=== PATIENT | male | born 1975 | race Caucasian/White ===

== ENCOUNTER 2018-07-19 23:31 | Emergency (ER) | payer BC ==
[2018-07-19] MEDS ORDERED: Sodium Chloride 0.9% 10 ML Syringe FLUSH PRN (23:53)
[2018-07-19] MEDS ORDERED: Morphine 2 MG/ML Syringe IVPUSH ONE (23:53)
[2018-07-19] MEDS ORDERED: Ketorolac 30 MG/ML SDV IVPUSH ONE (23:53)
[2018-07-19] MEDS ORDERED: Sodium Chloride 0.9% 2.5 ML Syringe FLUSH PRN (23:53)
[2018-07-19] MEDS ORDERED: Sodium Chloride 0.9% 1,000 ML IV ONE (23:53)
[2018-07-19] MEDS ORDERED: Ondansetron 4 MG/2 ML SDV IVPUSH ONE (23:53)
--- NOTE | 2018-07-19 23:56 | EDM.PDOC ---
ED HPI GENERAL MEDICAL PROBLEM - General Chief Complaint: Abdominal Pain Stated Complaint: ABD PAIN Time Seen by Provider: 07/19/18 23:47 - History of Present Illness INITIAL COMMENTS - FREE TEXT/NARRATIVE: HISTORY AND PHYSICAL: History of present illness: The patient is a 43-year-old male with a history of hypertension and insulin requiring diabetes who says that his sugar has been very stable and who presents with complaints of quick onset of right lower quadrant pain that started while he was sitting in a chair this evening. The patient says he had a normal day without any issues or systemic problems and has not had any fevers and says that he ate normally throughout the day but it is less than usual for dinner because he wasn't as hungry. He's had no recent trauma or illnesses and says that he was sitting in a chair when the pain came on very quickly in the right lower quadrant and radiated up to the right side. He's had no hematuria or dysuria and no flank pain and no testicular pain. He did not take any medications for this pain prior to coming here. He did not have a fever throughout the day and says that he only felt nauseated after the pain was constant for 30 minutes. He says it has since improved and only rates it as an 8 /10 currently. He has no midline back pain Review of systems: As per history of present illness and below otherwise all systems reviewed and negative. Past medical history: As per history of present illness and as reviewed below otherwise noncontributory. Surgical history: As per history of present illness and as reviewed below otherwise noncontributory. Social history: No reported history of drug or alcohol abuse. Family history: As per history of present illness and as reviewed below otherwise noncontributory. Physical exam: General: Well-developed well-nourished overweight man who is nontoxic and seems somewhat sweaty on my evaluation. Vital signs were noted by me HEENT: Atraumatic, normocephalic, negative for conjunctival pallor or scleral icterus, mucous membranes moist, throat clear, neck supple, nontender, trachea midline. Lungs: Clear to auscultation, breath sounds equal bilaterally, chest nontender. Heart: S1S2, regular rhythm slightly tachycardic rate of my evaluation but no overt murmurs. Abdomen: Soft, nondistended, bowel sounds are very hypoactive but there is no tympany on percussion. There is tenderness in the right lower quadrant without rebound or guarding but the patient has difficult time relaxing throughout the exam. Negative for masses or hepatosplenomegaly. Negative for costovertebral tenderness. Pelvis: Stable nontender. Genitourinary: Deferred. Rectal: Deferred. Extremities: Atraumatic, negative for cords or calf pain. Neurovascular unremarkable. Neuro: Awake, alert, oriented. Cranial nerves II through XII unremarkable. Cerebellum unremarkable. Motor and sensory unremarkable throughout. Exam nonfocal. Diagnostics: CBC CMP UA with reflex CT scan of the abdomen and pelvis Therapeutics: IV fluids Zofran Toradol morphine Heart rate has normalized to 94 after pain management and pain is also improved 0103: Dr. Steven the radiologist has contacted me and says that the patient does have 2 small stones , one within each of the kidneys, but there is no ureterolithiasis or obstruction and it is difficult to see the appendix but it is enlarged 7 mm. We discussed repeating the CT with contrast just of the pelvis which she feels may be able to help. I will inform the patient of this; he is agreeable to further image. 0218: As discussed with Dr. Curtis and I reevaluated the patient. He says that his pain is significantly improved and is no longer nauseated. On reexamination he still has some tenderness in the right lower quadrant without rebound or guarding and I have discussed with him the repeat CT scan findings of the slightly enlarged appendix without periappendiceal changes. Dr. Curtis feels that with the CT normal white cell count and no fever she would not pursue acute appendicitis at this point and she can follow him up in the clinic. She does not advise any antibiotics. I will advise the patient of this conversation and his presentation is more of may be passing a small stone or debris causing the trace occult blood and symptomatology. I will advise him on reasons to return to the ED and give him referral information to follow-up with Dr. Curtis He is completely comfortable with this care plan Impression: Right lower quadrant pain Definitive disposition and diagnosis as appropriate pending reevaluation and review of above. RLQ abdomen Pain Score (Numeric/FACES): 8 - Related Data Allergies Allergy/AdvReac Type Severity Reaction Status Date / Time No Known Allergies Allergy Verified 07/19/18 23:45 Home Meds: Home Meds Insulin Aspart [NovoLOG] 1,000 unit .XX ASDIRECTED 01/09/18 [History] Lisinopril 1 tab PO DAILY 07/19/18 [History] Rosuvastatin Calcium 1 tab PO DAILY 07/19/18 [History] Past Medical History HEENT History: Reports: Impaired Vision Other HEENT History: wears glasses Cardiovascular History: Reports: High Cholesterol, Hypertension Endocrine/Metabolic History: Reports: Diabetes, Type I - Infectious Disease History Infectious Disease History: Reports: Chicken Pox Social & Family History - Family History Family Medical History: Noncontributory - Tobacco Use Smoking Status *Q: Never Smoker - Recreational Drug Use Recreational Drug Use: No ED ROS GENERAL - Review of Systems Review Of Systems: ROS reveals no pertinent complaints other than HPI. ED EXAM, GENERAL - Physical Exam Exam: See Below (See dictation) Course - Vital Signs Last Recorded V/S: Last Vital Signs Temp 35.7 C 07/19/18 23:35 Pulse 94 07/20/18 00:59 Resp 18 07/20/18 00:59 BP 143/81 H 07/20/18 00:59 Pulse Ox 97 07/20/18 00:59 - Orders/Labs/Meds Orders: Active Orders 24 hr Category Date Time Status Sodium Chloride 0.9% [Saline Flush] Med 07/19/18 23:53 Active 10 ml FLUSH ASDIRECTED PRN Sodium Chloride 0.9% [Saline Flush] Med 07/19/18 23:53 Active 2.5 ml FLUSH ASDIRECTED PRN Saline Lock Insert [OM.PC] Stat Oth 07/19/18 23:52 Ordered Medication Orders Sodium Chloride (Saline Flush) 10 ml FLUSH ASDIRECTED PRN PRN Reason: Keep Vein Open Sodium Chloride (Saline Flush) 2.5 ml FLUSH ASDIRECTED PRN PRN Reason: Keep Vein Open Labs: Laboratory Tests 07/19/18 07/19/18 07/19/18 Range/Units 23:45 23:50 23:50 WBC 7.85 (4.0-11.0) K/uL RBC 5.35 (4.50-5.90) M/uL Hgb 16.0 (13.0-17.0) g/dL Hct 47.1 (38.0-50.0) % MCV 88.0 (80.0-98.0) fL MCH 29.9 (27.0-32.0) pg MCHC 34.0 (31.0-37.0) g/dL RDW Std Deviation 41.9 (28.0-62.0) fl RDW Coeff of Boni 13 (11.0-15.0) % Plt Count 267 (150-400) K/uL MPV 10.40 (7.40-12.00) fL Neut % (Auto) 56.9 (48.0-80.0) % Lymph % (Auto) 34.0 (16.0-40.0) % [place] % (Auto) 7.0 (0.0-15.0) % Eos % (Auto) 1.7 (0.0-7.0) % Baso % (Auto) 0.4 (0.0-1.5) % Neut # (Auto) 4.5 (1.4-5.7) K/uL Lymph # (Auto) 2.7 H (0.6-2.4) K/uL [place] # (Auto) 0.6 (0.0-0.8) K/uL Eos # (Auto) 0.1 (0.0-0.7) K/uL Baso # (Auto) 0.0 (0.0-0.1) K/uL Nucleated RBC % 0.0 /100WBC Nucleated RBCs # 0 K/uL Sodium 139 (136-148) mmol/L Potassium 3.6 (3.5-5.1) mmol/L Chloride 101 (98-107) mmol/L Carbon Dioxide 28.5 (21.0-32.0) mmol/L BUN 25 H (7.0-18.0) mg/dL Creatinine 1.2 (0.8-1.3) mg/dL Est Cr Clr Drug Dosing 93.24 mL/min Estimated GFR (MDRD) > 60.0 ml/min Glucose 113 H (74-106) mg/dL POC Glucose (60-110) mg/dL Calcium 9.3 (8.5-10.1) mg/dL Total Bilirubin 0.6 (0.2-1.0) mg/dL AST 111 H (15-37) IU/L ALT 166 H (14-63) IU/L Alkaline Phosphatase 178 H (46-116) U/L Total Protein 7.5 (6.4-8.2) g/dL Albumin 4.0 (3.4-5.0) g/dL Globulin 3.5 (2.6-4.0) g/dL Albumin/Globulin Ratio 1.1 (0.9-1.6) Urine Color YELLOW Urine Appearance CLEAR Urine pH 5.0 (5.0-8.0) Ur Specific [place] >= 1.030 (1.001-1.035) Urine Protein 30 H (NEGATIVE) mg/dL Urine Glucose (UA) NEGATIVE (NEGATIVE) mg/dL Urine Ketones NEGATIVE (NEGATIVE) mg/dL Urine Occult Blood TRACE-INTACT H (NEGATIVE) Urine Nitrite NEGATIVE (NEGATIVE) Urine Bilirubin NEGATIVE (NEGATIVE) Urine Urobilinogen 0.2 (<2.0) EU/dL Ur Leukocyte Esterase NEGATIVE (NEGATIVE) Urine RBC 0-2 (0-2/HPF) Urine WBC 0-1 (0-5/HPF) Ur Epithelial Cells RARE (NONE-FEW) Urine Bacteria RARE (NEGATIVE) 07/19/18 Range/Units 23:51 WBC (4.0-11.0) K/uL RBC (4.50-5.90) M/uL Hgb (13.0-17.0) g/dL Hct (38.0-50.0) % MCV (80.0-98.0) fL MCH (27.0-32.0) pg MCHC (31.0-37.0) g/dL RDW Std Deviation (28.0-62.0) fl RDW Coeff of Boni (11.0-15.0) % Plt Count (150-400) K/uL MPV (7.40-12.00) fL Neut % (Auto) (48.0-80.0) % Lymph % (Auto) (16.0-40.0) % [place] % (Auto) (0.0-15.0) % Eos % (Auto) (0.0-7.0) % Baso % (Auto) (0.0-1.5) % Neut # (Auto) (1.4-5.7) K/uL Lymph # (Auto) (0.6-2.4) K/uL [place] # (Auto) (0.0-0.8) K/uL Eos # (Auto) (0.0-0.7) K/uL Baso # (Auto) (0.0-0.1) K/uL Nucleated RBC % /100WBC Nucleated RBCs # K/uL Sodium (136-148) mmol/L Potassium (3.5-5.1) mmol/L Chloride (98-107) mmol/L Carbon Dioxide (21.0-32.0) mmol/L BUN (7.0-18.0) mg/dL Creatinine (0.8-1.3) mg/dL Est Cr Clr Drug Dosing mL/min Estimated GFR (MDRD) ml/min Glucose (74-106) mg/dL POC Glucose 92 (60-110) mg/dL Calcium (8.5-10.1) mg/dL Total Bilirubin (0.2-1.0) mg/dL AST (15-37) IU/L ALT (14-63) IU/L Alkaline Phosphatase (46-116) U/L Total Protein (6.4-8.2) g/dL Albumin (3.4-5.0) g/dL Globulin (2.6-4.0) g/dL Albumin/Globulin Ratio (0.9-1.6) Urine Color Urine Appearance Urine pH (5.0-8.0) Ur Specific [place] (1.001-1.035) Urine Protein (NEGATIVE) mg/dL Urine Glucose (UA) (NEGATIVE) mg/dL Urine Ketones (NEGATIVE) mg/dL Urine Occult Blood (NEGATIVE) Urine Nitrite (NEGATIVE) Urine Bilirubin (NEGATIVE) Urine Urobilinogen (<2.0) EU/dL Ur Leukocyte Esterase (NEGATIVE) Urine RBC (0-2/HPF) Urine WBC (0-5/HPF) Ur Epithelial Cells (NONE-FEW) Urine Bacteria (NEGATIVE) Meds: Medications Generic Name Dose Route Start Last Admin Trade Name Freq PRN Reason Stop Dose Admin Sodium Chloride 10 ml 07/19/18 23:53 Saline Flush FLUSH ASDIRECTED PRN Keep Vein Open Sodium Chloride 2.5 ml 07/19/18 23:53 Saline Flush FLUSH ASDIRECTED PRN Keep Vein Open Discontinued Medications Generic Name Dose Route Start Last Admin Trade Name Freq PRN Reason Stop Dose Admin Sodium Chloride 1,000 mls @ 999 mls/hr 07/19/18 23:53 07/20/18 00:02 Normal Saline IV 07/20/18 00:53 999 mls/hr STAT ONE Administration Iopamidol 100 ml 07/20/18 01:40 07/20/18 01:40 Isovue Multipack-370 (76%) IVPUSH 07/20/18 01:41 100 ml ONETIME STA Administration Ketorolac Tromethamine 30 mg 07/19/18 23:53 07/20/18 00:03 Toradol IVPUSH 07/19/18 23:54 30 mg ONETIME ONE Administration Morphine Sulfate 4 mg 07/19/18 23:53 07/20/18 00:03 Morphine IVPUSH 07/19/18 23:54 4 mg ONETIME ONE Administration Ondansetron HCl 4 mg 07/19/18 23:53 07/20/18 00:03 Zofran IVPUSH 07/19/18 23:54 4 mg ONETIME ONE Administration Departure - Departure Time of Disposition: 02:24 Disposition: Home, Self-Care 01 Condition: Good Clinical Impression: Abdominal pain Qualifiers: Abdominal location: right lower quadrant Qualified Code(s): R10.31 - Right lower quadrant pain - Discharge Information Referrals: PCP,None [Primary Care Provider] - Forms: ED Department Discharge Additional Instructions: The following information is given to patients seen in the emergency department who are being discharged to home. This information is to outline your options for follow-up care. We provide all patients seen in our emergency department with a follow-up referral. The need for follow-up, as well as the timing and circumstances, are variable depending upon the specifics of your emergency department visit. If you don't have a primary care physician on staff, we will provide you with a referral. We always advise you to contact your personal physician following an emergency department visit to inform them of the circumstance of the visit and for follow-up with them and/or the need for any referrals to a consulting specialist. The emergency department will also refer you to a specialist when appropriate. This referral assures that you have the opportunity for followup care with a specialist. All of these measure are taken in an effort to provide you with optimal care, which includes your followup. Under all circumstances we always encourage you to contact your private physician who remains a resource for coordinating your care. When calling for followup care, please make the office aware that this follow-up is from your recent emergency room visit. If for any reason you are refused follow-up, please contact the [facility] emergency department at and ask to speak to the emergency department charge nurse. [facility] [address] [place] [id number] Push hydration and eat a bland diet for the next 24 hours. Please use over-the- counter medications as you choose for discomfort and call the clinic first thing in the morning and schedule a follow-up appointment with Dr. Curtis in her clinic stating to the clerical receptionist desk that you were seen here in the ED and she was called about you. Please return to ER as needed and as we discussed. Routine you to monitor your blood sugar as we discussed. - My Orders Last 24 Hours: My Active Orders 07/19/18 23:52 Saline Lock Insert [OM.PC] Stat 07/19/18 23:53 Sodium Chloride 0.9% [Saline Flush] 10 ml FLUSH ASDIRECTED PRN Sodium Chloride 0.9% [Saline Flush] 2.5 ml FLUSH ASDIRECTED PRN - Assessment/Plan Last 24 Hours: My Active Orders 07/19/18 23:52 Saline Lock Insert [OM.PC] Stat 07/19/18 23:53 Sodium Chloride 0.9% [Saline Flush] 10 ml FLUSH ASDIRECTED PRN Sodium Chloride 0.9% [Saline Flush] 2.5 ml FLUSH ASDIRECTED PRN
[2018-07-20 00:13] LABS: CHLORIDE,CL 101 mmol/L (98-107); SODIUM,NA 139 mmol/L (136-148)
--- NOTE | 2018-07-20 01:06 | CT ---
INDICATION: Right lower quadrant pain TECHNIQUE: CT abdomen and pelvis without contrast. COMPARISON: None FINDINGS: Lower chest: Unremarkable. Liver: Unremarkable. Spleen: Unremarkable. Pancreas: Unremarkable. Gallbladder and bile ducts: Unremarkable. Adrenal glands: Unremarkable. Kidneys: 5 mm nonobstructive stone in the right kidney. 2 mm nonobstructive left renal stone. GI tract: The proximal appendix is only partially seen on image 50 through 55 series 204. The visualized appendix measures 7 mm in diameter. There is no periappendiceal fat stranding. Vascular structures: Unremarkable. Lymph nodes: Unremarkable. Miscellaneous: Unremarkable. No free air or significant free fluid. Pelvic Organs: Unremarkable. Bones: Unremarkable for age. IMPRESSION: Only the proximal appendix is visualized. It measures 7 mm in diameter. This could represent early acute appendicitis. No periappendiceal fat stranding identified. Nonobstructive bilateral nephrolithiasis. These findings were discussed with Dr. Duenas at 1 a.m. on July 20, 2018. Please note that all CT scans at this facility use dose modulation, iterative reconstruction, and/or weight-based dosing when appropriate to reduce radiation dose to as low as reasonably achievable. Dictated by Ivonne Steven MD @ Jul 20 2018 12:48AM Signed by Dr. Ivonne Steven @ Jul 20 2018 1:03AM
[2018-07-20] MEDS ORDERED: Iopamidol 755 MG/ML 500 ML Multipack Bottle IVPUSH STA (01:40)
--- NOTE | 2018-07-20 02:09 | CT ---
INDICATION: Right lower quadrant pain. Appendix not clearly seen on noncontrast CT done earlier today. TECHNIQUE: CT pelvis acquired with 100 cc Isovue 370 IV contrast. COMPARISON: CT abdomen pelvis from earlier today FINDINGS: The appendix is visualized on image 45 series 303 and measures 7 mm in diameter. There is no periappendiceal fat stranding. Remainder of the exam is stable compared to the prior study. No free fluid. IMPRESSION: The appendix is more clearly seen on this exam. The appendix measures 7 mm in diameter, concerning for early acute appendicitis. There is no periappendiceal fat stranding or free fluid. These findings were discussed with Dr. Duenas at 2:08 a.m. on July 20, 2018. Please note that all CT scans at this facility use dose modulation, iterative reconstruction, and/or weight-based dosing when appropriate to reduce radiation dose to as low as reasonably achievable. Dictated by Ivonne Steven MD @ Jul 20 2018 1:59AM Signed by Dr. Ivonne Steven @ Jul 20 2018 2:07AM
== END 2018-07-20 02:34 | disposition home or self-care (01) ==
LOC: MW.ED 23:31
DX: R10.31 Right lower quadrant pain (principal); I10 Essential (primary) hypertension; E78.00 Pure hypercholesterolemia, unspecified; E10.9 Type 1 diabetes mellitus without complications; Z79.899 Other long term (current) drug therapy
CPT/HCPCS: 36415; 72193; 74176; 80053; 81001; 82962; 85025; 96361; 96374; 96375; 99284; J1885; J2270; J2405; J7040; Q9967; 99283

== ENCOUNTER 2019-08-05 07:19 | Emergency (ER) | payer BC ==
[2019-08-05] MEDS ORDERED: Ondansetron 4 MG/2 ML SDV IVPUSH ONE (07:49)
[2019-08-05] MEDS ORDERED: Ketorolac 30 MG/ML SDV IVPUSH ONE (07:49)
[2019-08-05] MEDS ORDERED: Sodium Chloride 0.9% 10 ML Syringe FLUSH PRN (07:49)
[2019-08-05] MEDS ORDERED: Sodium Chloride 0.9% 2.5 ML Syringe FLUSH PRN ×2 (07:49)
[2019-08-05] MEDS ORDERED: Morphine 4 MG/ML Syringe IVPUSH ONE (07:49)
[2019-08-05] MEDS ORDERED: Sodium Chloride 0.9% 1,000 ML IV ONE (07:49)
[2019-08-05] MEDS ORDERED: Morphine 2 MG/ML SYRINGE IVPUSH PRN (07:50)
--- NOTE | 2019-08-05 08:01 | EDM.PDOC ---
ED HPI GENERAL MEDICAL PROBLEM - General Chief Complaint: General Stated Complaint: KIDNEY STONES OR APPENDIX Time Seen by Provider: 08/05/19 07:33 - History of Present Illness INITIAL COMMENTS - FREE TEXT/NARRATIVE: History of present illness: Patient presents with right flank pain that began last night similar pain to his prior kidney stones pain is in the right back radiating into the right groin sharp colicky nature he denies any blood in his urine he is not had any fever or chills he did have some nausea and vomiting earlier prior kidney stones passed spontaneously he has a history of diabetes and renal colic. Review of systems: As per history of present illness and below otherwise all systems reviewed and negative. Past medical history: As per history of present illness and as reviewed below otherwise noncont ributory. Surgical history: As per history of present illness and as reviewed below otherwise noncontributory. Social history: No reported history of drug or alcohol abuse. Family history: As per history of present illness and as reviewed below otherwise noncontributory. Physical exam: HEENT: Atraumatic, normocephalic, pupils reactive, negative for conjunctival pallor or scleral icterus, mucous membranes moist, throat clear, neck supple, nontender, trachea midline. Lungs: Clear to auscultation, breath sounds equal bilaterally, chest nontender. Heart: S1S2, regular, negative for clicks, rubs, or JVD. Abdomen: Soft, nondistended, nontender. Negative for masses or hepatosplenomegaly. Negative for costovertebral tenderness. Pelvis: Stable nontender. Genitourinary: Deferred. Rectal: Deferred. Extremities: Atraumatic, negative for cords or calf pain. Neurovascular unremarkable. Neuro: Awake, alert, oriented. Cranial nerves II through XII unremarkable. Cerebellum unremarkable. Motor and sensory unremarkable throughout. Exam nonfocal. Diagnostics: [] Therapeutics: [] Impression: [] Plan: Will be medicated with Toradol morphine and Zofran fluid bolus will be given labs will be sent he will be reassessed. [] Definitive disposition and diagnosis as appropriate pending reevaluation and review of above. Right Back Pain Score (Numeric/FACES): 8 - Related Data Allergies Allergy/AdvReac Type Severity Reaction Status Date / Time No Known Allergies Allergy Verified 08/05/19 07:39 Home Meds: Home Meds Insulin Aspart [NovoLOG] 1,000 unit .XX ASDIRECTED 01/09/18 [History] Lisinopril 1 tab PO DAILY 07/19/18 [History] Rosuvastatin Calcium 1 tab PO DAILY 07/19/18 [History] Naproxen Sodium [Anaprox DS] 550 mg PO BID #20 tab 08/05/19 [Rx] Ondansetron [Zofran ODT] 4 mg PO Q6H PRN 5 Days #12 tab.dis 08/05/19 [Rx] Tamsulosin [Flomax] 0.4 mg PO DAILY 10 Days #10 cap.er 08/05/19 [Rx] oxyCODONE HCl/Acetaminophen [Percocet 5-325 mg Tablet] 1 each PO Q8HR #12 tablet 08/05/19 [Rx] Past Medical History HEENT History: Reports: Impaired Vision Other HEENT History: wears glasses Cardiovascular History: Reports: High Cholesterol, Hypertension Endocrine/Metabolic History: Reports: Diabetes, Type I - Infectious Disease History Infectious Disease History: Reports: None Social & Family History - Family History Family Medical History: Noncontributory - Tobacco Use Smoking Status *Q: Never Smoker - Caffeine Use Caffeine Use: Reports: None - Recreational Drug Use Recreational Drug Use: No ED ROS GENERAL - Review of Systems Review Of Systems: See Below ED EXAM, GENERAL - Physical Exam Exam: See Below Course - Vital Signs Text/Narrative:: Patient is feeling better after medications still has some residual pain in his right flank lab studies are fairly unremarkable he is hyperglycemic and wants to go home and take his insulin. No evidence of infection in the urine will discharge him on Percocet naproxen tamsulosin and Zofran and refer him to urology. He is to return to the ED over the weekend if he has increased pain Last Recorded V/S: Last Vital Signs Temp 35.5 C L 08/05/19 07:40 Pulse 92 08/05/19 09:23 Resp 18 08/05/19 09:23 BP 136/56 L 08/05/19 09:23 Pulse Ox 98 08/05/19 09:23 - Orders/Labs/Meds Orders: Active Orders 24 hr Category Date Time Status Morphine Sulfate [Morphine] Med 08/05/19 07:50 Active 4 mg IVPUSH Q1H PRN Sodium Chloride 0.9% [Saline Flush] Med 08/05/19 07:49 Active 10 ml FLUSH ASDIRECTED PRN Sodium Chloride 0.9% [Saline Flush] Med 08/05/19 07:49 Active 2.5 ml FLUSH ASDIRECTED PRN Sodium Chloride 0.9% [Saline Flush] Med 08/05/19 07:49 Active 2.5 ml FLUSH ASDIRECTED PRN Saline Lock Insert [OM.PC] Stat Oth 08/05/19 07:49 Ordered Medication Orders Morphine Sulfate (Morphine) 4 mg IVPUSH Q1H PRN PRN Reason: Pain (moderate 4-6) Sodium Chloride (Saline Flush) 2.5 ml FLUSH ASDIRECTED PRN PRN Reason: Keep Vein Open Last Admin: 08/05/19 07:55 Dose: 2.5 ml Documented by: [email or web address] Sodium Chloride (Saline Flush) 2.5 ml FLUSH ASDIRECTED PRN PRN Reason: Keep Vein Open Last Admin: 08/05/19 07:55 Dose: 2.5 ml Documented by: [email or web address] Sodium Chloride (Saline Flush) 10 ml FLUSH ASDIRECTED PRN PRN Reason: Keep Vein Open Last Admin: 08/05/19 07:55 Dose: 10 ml Documented by: [email or web address] Labs: Laboratory Tests 08/05/19 08/05/19 08/05/19 Range/Units 07:33 07:33 07:33 WBC 8.14 (4.0-11.0) K/uL RBC 4.83 (4.50-5.90) M/uL Hgb 14.0 (13.0-17.0) g/dL Hct 42.6 (38.0-50.0) % MCV 88.2 (80.0-98.0) fL MCH 29.0 (27.0-32.0) pg MCHC 32.9 (31.0-37.0) g/dL RDW Std Deviation 40.8 (28.0-62.0) fl RDW Coeff of Boni 13 (11.0-15.0) % Plt Count 205 (150-400) K/uL MPV 10.90 (7.40-12.00) fL Neut % (Auto) 82.9 H (48.0-80.0) % Lymph % (Auto) 12.5 L (16.0-40.0) % Meriwether % (Auto) 3.4 (0.0-15.0) % Eos % (Auto) 1.0 (0.0-7.0) % Baso % (Auto) 0.2 (0.0-1.5) % Neut # (Auto) 6.7 H (1.4-5.7) K/uL Lymph # (Auto) 1.0 (0.6-2.4) K/uL Meriwether # (Auto) 0.3 (0.0-0.8) K/uL Eos # (Auto) 0.1 (0.0-0.7) K/uL Baso # (Auto) 0.0 (0.0-0.1) K/uL Nucleated RBC % 0.0 /100WBC Nucleated RBCs # 0 K/uL Sodium 137 (136-148) mmol/L Potassium 4.5 (3.5-5.1) mmol/L Chloride 102 (98-107) mmol/L Carbon Dioxide 23.0 (21.0-32.0) mmol/L BUN 24 H (7.0-18.0) mg/dL Creatinine 1.5 H (0.8-1.3) mg/dL Est Cr Clr Drug Dosing 73.83 mL/min Estimated GFR (MDRD) 51.1 ml/min Glucose 335 H (74-106) mg/dL Calcium 9.0 (8.5-10.1) mg/dL Total Bilirubin 0.5 (0.2-1.0) mg/dL AST 37 (15-37) IU/L ALT 62 (14-63) IU/L Alkaline Phosphatase 119 H (46-116) U/L Total Protein 6.8 (6.4-8.2) g/dL Albumin 4.0 (3.4-5.0) g/dL Globulin 2.8 (2.6-4.0) g/dL Albumin/Globulin Ratio 1.4 (0.9-1.6) Urine Color YELLOW Urine Appearance CLEAR Urine pH 5.5 (5.0-8.0) Ur Specific Fitzpatrick 1.025 (1.001-1.035) Urine Protein NEGATIVE (NEGATIVE) mg/dL Urine Glucose (UA) >=1000 (NEGATIVE) mg/dL Urine Ketones 15 H (NEGATIVE) mg/dL Urine Occult Blood TRACE-INTACT H (NEGATIVE) Urine Nitrite NEGATIVE (NEGATIVE) Urine Bilirubin NEGATIVE (NEGATIVE) Urine Urobilinogen 0.2 (<2.0) EU/dL Ur Leukocyte Esterase NEGATIVE (NEGATIVE) Urine RBC 0-2 (0-2/HPF) Urine WBC 0-1 (0-5/HPF) Ur Epithelial Cells RARE (NONE-FEW) Urine Bacteria RARE (NEGATIVE) Meds: Medications Generic Name Dose Route Start Last Admin Trade Name Freq PRN Reason Stop Dose Admin Morphine Sulfate 4 mg 08/05/19 07:50 Morphine IVPUSH Q1H PRN Pain (moderate 4-6) Sodium Chloride 2.5 ml 08/05/19 07:49 08/05/19 07:55 Saline Flush FLUSH 2.5 ml ASDIRECTED PRN Administration Keep Vein Open Sodium Chloride 2.5 ml 08/05/19 07:49 08/05/19 07:55 Saline Flush FLUSH 2.5 ml ASDIRECTED PRN Administration Keep Vein Open Sodium Chloride 10 ml 08/05/19 07:49 08/05/19 07:55 Saline Flush FLUSH 10 ml ASDIRECTED PRN Administration Keep Vein Open Discontinued Medications Generic Name Dose Route Start Last Admin Trade Name Freq PRN Reason Stop Dose Admin Sodium Chloride 1,000 mls @ 999 mls/hr 08/05/19 07:49 08/05/19 07:54 Normal Saline IV 08/05/19 08:49 999 mls/hr BOLUS ONE Administration Ketorolac Tromethamine 30 mg 08/05/19 07:49 08/05/19 07:54 Toradol IVPUSH 08/05/19 07:50 30 mg ONETIME ONE Administration Morphine Sulfate 4 mg 08/05/19 07:49 08/05/19 07:54 Morphine IVPUSH 08/05/19 07:50 4 mg ONETIME ONE Administration Ondansetron HCl 4 mg 08/05/19 07:49 08/05/19 07:54 Zofran IVPUSH 08/05/19 07:50 4 mg ONETIME ONE Administration Departure - Departure Time of Disposition: 09:25 Disposition: Home, Self-Care 01 Condition: Good Clinical Impression: Renal colic - Discharge Information *PRESCRIPTION DRUG MONITORING PROGRAM REVIEWED*: Not Applicable *COPY OF PRESCRIPTION DRUG MONITORING REPORT IN PATIENT VALERIANO: Not Applicable Instructions: Kidney Stones, [id number] Referrals: Deborah Dixon PA [Primary Care Provider] - Forms: ED Department Discharge Additional Instructions: The following information is given to patients seen in the emergency department who are being discharged to home. This information is to outline your options fo r follow-up care. We provide all patients seen in our emergency department with a follow-up referral. The need for follow-up, as well as the timing and circumstances, are variable depending upon the specifics of your emergency department visit. If you don't have a primary care physician on staff, we will provide you with a referral. We always advise you to contact your personal physician following an emergency department visit to inform them of the circumstance of the visit and for follow-up with them and/or the need for any referrals to a consulting specialist. The emergency department will also refer you to a specialist when appropriate. This referral assures that you have the opportunity for follow-up care with a specialist. All of these measure are taken in an effort to provide you with optimal care, which includes your follow-up. Under all circumstances we always encourage you to contact your private physician who remains a resource for coordinating your care. When calling for follow-up care, please make the office aware that this follow-up is from your recent emergency room visit. If for any reason you are refused follow-up, please contact the [facility] Emergency Department at and asked to speak to the emergency department charge nurse. [facility] [address] [place] [id number] Sepsis Event Note (ED) - Evaluation Sepsis Screening Result: No Definite Risk - Focused Exam Vital Signs: Vital Signs Temp Pulse Resp BP Pulse Ox 08/05/19 09:23 92 18 136/56 L 98 08/05/19 07:40 35.5 C L 81 18 177/90 H 94 L - My Orders Last 24 Hours: My Active Orders 08/05/19 07:49 Sodium Chloride 0.9% [Saline Flush] 10 ml FLUSH ASDIRECTED PRN Sodium Chloride 0.9% [Saline Flush] 2.5 ml FLUSH ASDIRECTED PRN Sodium Chloride 0.9% [Saline Flush] 2.5 ml FLUSH ASDIRECTED PRN Saline Lock Insert [OM.PC] Stat 08/05/19 07:50 Morphine Sulfate [Morphine] 4 mg IVPUSH Q1H PRN - Assessment/Plan Last 24 Hours: My Active Orders 08/05/19 07:49 Sodium Chloride 0.9% [Saline Flush] 10 ml FLUSH ASDIRECTED PRN Sodium Chloride 0.9% [Saline Flush] 2.5 ml FLUSH ASDIRECTED PRN Sodium Chloride 0.9% [Saline Flush] 2.5 ml FLUSH ASDIRECTED PRN Saline Lock Insert [OM.PC] Stat 08/05/19 07:50 Morphine Sulfate [Morphine] 4 mg IVPUSH Q1H PRN
[2019-08-05 08:06] LABS: POTASSIUM,K 4.5 mmol/L (3.5-5.1)
== END 2019-08-05 09:51 | disposition home or self-care (01) ==
LOC: MW.ED 07:19
DX: N23 Unspecified renal colic (principal); E78.00 Pure hypercholesterolemia, unspecified; I10 Essential (primary) hypertension; E10.9 Type 1 diabetes mellitus without complications; Z79.899 Other long term (current) drug therapy
CPT/HCPCS: 36415; 80053; 81001; 85025; 96361; 96374; 96375; 96376; 99284; J1885; J2270; J2405; J7030; 99283

== ENCOUNTER 2023-03-10 09:38 | Emergency (ER) | payer BC ==
[2023-03-10] MEDS ORDERED: Sodium Chloride 0.9% 2.5 ML Syringe FLUSH PRN (09:56)
[2023-03-10] MEDS ORDERED: Ondansetron 4 MG/2 ML SDV IVPUSH ONE (09:56)
[2023-03-10] MEDS ORDERED: Morphine 4 MG/ML Syringe IVPUSH ONE (09:56)
[2023-03-10] MEDS ORDERED: Sodium Chloride 0.9% 10 ML Syringe FLUSH PRN (09:56)
[2023-03-10] MEDS ORDERED: Sodium Chloride 0.9% 1,000 ML IV ONE (09:56)
[2023-03-10] MEDS ORDERED: Ketorolac 30 MG/ML SDV IVPUSH ONE (09:56)
[2023-03-10 10:09] LABS: BASOPHILS ABSOLUTE AUTO 0.04 K/uL (0.00-0.20); BASOPHILS PERCENT AUTO 0.7 % (0.0-1.0); EOSINOPHILS ABSOLUTE AUTO 0.12 K/uL (0.00-0.45); HEMATOCRIT 42.6 % (42.0-52.0); HEMOGLOBIN 14.5 g/dL (14.0-18.0); IMMATURE GRAN ABSOLUTE AUTO 0.01 K/uL (0.00-0.05); IMMATURE GRAN PERCENT AUTO 0.2 % (0.0-0.4); LYMPHOCYTES ABSOLUTE AUTO 1.56 K/uL (1.00-4.80); LYMPHOCYTES PERCENT AUTO 26.5 % (24.0-44.0); MEAN CORPUSCULAR HEMOGLOBIN 29.5 pg (28.0-32.0); MEAN CORPUSCULAR VOLUME 86.8 fL (83.0-99.0); MEAN PLATELET VOLUME 9.9 fL (9.4-12.4); MONOCYTES ABSOLUTE AUTO 0.28 K/uL (0.00-0.80); MONOCYTES PERCENT AUTO 4.8 % (0.0-8.0); NEUTROPHILS ABSOLUTE AUTO 3.87 K/uL (1.80-7.70); NEUTROPHILS PERCENT AUTO 65.8 % (41.0-71.0); PLATELET COUNT,PLT 240 K/uL (150-400); RED BLOOD CELL COUNT 4.91 M/uL (4.52-5.90); WHITE BLOOD CELL COUNT,WBC 5.88 K/uL (3.9-11.3)
[2023-03-10 10:10] LABS: APPEARANCE,URINE CLEAR; BILIRUBIN,URINE NEGATIVE (NEGATIVE); COLOR,URINE YELLOW; GLUCOSE,URINE 100 mg/dL (NEGATIVE); KETONES,URINE NEGATIVE (NEGATIVE); LEUKOCYTE ESTERASE,URINE NEGATIVE (NEGATIVE); NITRITE,URINE NEGATIVE (NEGATIVE); OCCULT BLOOD,URINE NEGATIVE (NEGATIVE); PROTEIN,URINE 30 mg/dL (NEGATIVE); UROBILINOGEN,URINE 0.2 EU/dL (<2.0)
[2023-03-10 10:19] LABS: RBC,URINE 0-2 (0-2/HPF)
[2023-03-10 10:20] LABS: BACTERIA,URINE FEW (NEGATIVE); EPITHELIAL CELLS,URINE OCCASIONAL (NONE-FEW); HYALINE CASTS,URINE 0-1 (0-2/LPF); MUCUS,URINE LIGHT (NONE-MOD); WBC,URINE 0-2 (0-5/HPF)
[2023-03-10 10:49] LABS: A/G RATIO 1.1 (0.9-1.6); ALBUMIN 3.9 g/dL (3.4-5.0); BILIRUBIN TOTAL 0.6 mg/dL (0.2-1.0); CALCIUM 9.2 mg/dL (8.5-10.1); CARBON DIOXIDE,CO2 27.1 mmol/L (21.0-32.0); CREATININE 1.4 mg/dL (0.8-1.3); EST CRCL DRUG DOSING (CG) 75.84 mL/min; PROTEIN TOTAL,TP 7.3 g/dL (6.4-8.2)
== END 2023-03-10 11:31 | disposition home or self-care (01) ==
LOC: MW.ED 09:38
DX: N20.0 Calculus of kidney (principal); I10 Essential (primary) hypertension; E78.00 Pure hypercholesterolemia, unspecified; E10.9 Type 1 diabetes mellitus without complications; Z79.4 Long term (current) use of insulin; Z79.899 Other long term (current) drug therapy
CPT/HCPCS: 36415; 74176; 80053; 81001; 85025; 96361; 96374; 96375; 99284; J1885; J2270; J2405; J3490; J7030

== ENCOUNTER 2024-10-26 15:47 | Observation (INO) | payer BC ==
[2024-10-26] MEDS ORDERED: Sodium Chloride 0.9% 10 ML Syringe FLUSH PRN ×2 (16:01→19:50)
[2024-10-26] MEDS ORDERED: Sodium Chloride 0.9% 2.5 ML Syringe FLUSH PRN ×2 (16:01→19:50)
[2024-10-26] MEDS ORDERED: cefTRIAXone 2 GM in Water For Injection, Sterile 20 ML IVPUSH ONE (16:02)
[2024-10-26] MEDS: Labetalol 100 MG/20 ML MDV IVPUSH ONE (16:37)
[2024-10-26 16:48] LABS: BASOPHILS ABSOLUTE AUTO 0.03 K/uL (0.00-0.20); BASOPHILS PERCENT AUTO 0.4 % (0.0-1.0); EOSINOPHILS ABSOLUTE AUTO 0.16 K/uL (0.00-0.45); EOSINOPHILS PERCENT AUTO 2.0 % (0.0-6.0); IMMATURE GRAN ABSOLUTE AUTO 0.03 K/uL (0.00-0.05); IMMATURE GRAN PERCENT AUTO 0.4 % (0.0-0.4); LYMPHOCYTES ABSOLUTE AUTO 1.59 K/uL (1.00-4.80); LYMPHOCYTES PERCENT AUTO 19.6 % (24.0-44.0); MEAN PLATELET VOLUME 9.9 fL (9.4-12.4); MONOCYTES ABSOLUTE AUTO 0.44 K/uL (0.00-0.80); MONOCYTES PERCENT AUTO 5.4 % (0.0-8.0); NEUTROPHILS ABSOLUTE AUTO 5.87 K/uL (1.80-7.70); NEUTROPHILS PERCENT AUTO 72.2 % (41.0-71.0); NRBC ABSOLUTE 0.00 K/uL (0.00-0.02); NRBC PERCENT 0.0 /100WBC (0.0-0.2); PLATELET COUNT,PLT 322 K/uL (150-400); RED BLOOD CELL COUNT 4.86 M/uL (4.52-5.90); WHITE BLOOD CELL COUNT,WBC 8.12 K/uL (3.9-11.3)
[2024-10-26 17:19] LABS: A/G RATIO 1.0 (0.9-1.6); ALANINE AMINOTRANSFERASE,ALT 27.0 IU/L (14-63); ASPARTATE AMNIOTRANSFERASE,AST 18.0 IU/L (15-37); BILIRUBIN TOTAL 0.4 mg/dL (0.2-1.0); BLOOD UREA NITROGEN,BUN 21.0 mg/dL (7.0-18.0); CARBON DIOXIDE,CO2 30.5 mmol/L (21.0-32.0); CHLORIDE,CL 101.0 mmol/L (98-107); CREATININE 1.5 mg/dL (0.8-1.3); EST CRCL DRUG DOSING (CG) 75.9 mL/min; GLUCOSE RANDOM 230.0 mg/dL (74-106); POTASSIUM,K 4.3 mmol/L (3.5-5.1); PRO B-TYPE NATRIUR PEPT,BNPPRO 7.0 pg/mL (0-125); PROTEIN TOTAL,TP 7.2 g/dL (6.4-8.2); SODIUM,NA 137.0 mmol/L (136-148)
[2024-10-26 17:25] LABS: ESTIMATED GFR 57.0 mL/min (>60)
[2024-10-26] MEDS: Iopamidol 755 Mg/ML 100 ML Bottle IVPUSH ONE (17:32)
[2024-10-26] MEDS: VANCOmycin 2 GM/400 ML 2 GM in Premix Bag 1 BAG IV ONE (17:54)
[2024-10-26] MEDS ORDERED: Ondansetron 4 MG/2 ML SDV IVPUSH PRN (19:50)
[2024-10-26] MEDS ORDERED: 50% Dextrose in Water 50 ML Syringe IVPUSH PRN ×3 (21:25→23:04)
[2024-10-26] MEDS: Insulin Glargine,Human Rec. Analog 100 Units/ML 3 ML Pen SUBCUT SCH (21:49)
[2024-10-27 06:21] LABS: BASOPHILS ABSOLUTE AUTO 0.03 K/uL (0.00-0.20); BASOPHILS PERCENT AUTO 0.5 % (0.0-1.0); EOSINOPHILS ABSOLUTE AUTO 0.12 K/uL (0.00-0.45); EOSINOPHILS PERCENT AUTO 1.8 % (0.0-6.0); IMMATURE GRAN ABSOLUTE AUTO 0.02 K/uL (0.00-0.05); IMMATURE GRAN PERCENT AUTO 0.3 % (0.0-0.4); LYMPHOCYTES ABSOLUTE AUTO 1.37 K/uL (1.00-4.80); LYMPHOCYTES PERCENT AUTO 20.9 % (24.0-44.0); MEAN PLATELET VOLUME 10.2 fL (9.4-12.4); MONOCYTES ABSOLUTE AUTO 0.37 K/uL (0.00-0.80); MONOCYTES PERCENT AUTO 5.6 % (0.0-8.0); NEUTROPHILS ABSOLUTE AUTO 4.66 K/uL (1.80-7.70); NEUTROPHILS PERCENT AUTO 70.9 % (41.0-71.0); NRBC ABSOLUTE 0.00 K/uL (0.00-0.02); NRBC PERCENT 0.0 /100WBC (0.0-0.2); PLATELET COUNT,PLT 321 K/uL (150-400); RED BLOOD CELL COUNT 4.86 M/uL (4.52-5.90); WHITE BLOOD CELL COUNT,WBC 6.57 K/uL (3.9-11.3)
[2024-10-27 06:47] LABS: BLOOD UREA NITROGEN,BUN 13.0 mg/dL (7.0-18.0); CARBON DIOXIDE,CO2 26.2 mmol/L (21.0-32.0); CHLORIDE,CL 103.0 mmol/L (98-107); CREATININE 1.1 mg/dL (0.8-1.3); EST CRCL DRUG DOSING (CG) 103.5 mL/min; GLUCOSE RANDOM 212.0 mg/dL (74-106); POTASSIUM,K 4.2 mmol/L (3.5-5.1); SODIUM,NA 140.0 mmol/L (136-148)
[2024-10-27 06:48] LABS: ESTIMATED GFR 83.0 mL/min (>60)
[2024-10-27] MEDS ORDERED: 50% Dextrose in Water 50 ML Syringe IVPUSH PRN ×2 (08:51→10:54)
[2024-10-27] MEDS: Fenofibrate,Micronized 67 MG Cap PO SCH (10:49)
[2024-10-27] MEDS ORDERED: Insulin Glargine,Human Rec. Analog 100 Units/ML 3 ML Pen SUBCUT SCH (21:00)
== END 2024-10-27 14:45 | disposition home or self-care (01) ==
LOC: MW.ED 15:47 → MW.MS 19:44
PROVIDERS: ADMIT Family Medicine; ATTEND Family Medicine
DX: M86.172 Other acute osteomyelitis, left ankle and foot (principal); E10.621 Type 1 diabetes mellitus with foot ulcer; L97.529 Non-pressure chronic ulcer of other part of left foot with unspecified severity; L03.032 Cellulitis of left toe; I10 Essential (primary) hypertension; Z79.4 Long term (current) use of insulin; Z86.39 Personal history of other endocrine, nutritional and metabolic disease; Z79.899 Other long term (current) drug therapy
CPT/HCPCS: 36415; 73706-26-LT; 73706-LT; 80048; 80053; 80202; 82947; 83036; 83605; 83735; 83880; 85025; 85652; 86140; 87040; 96361; 96365; 96366; 96367; 96375; 96376; 99222; 99239; 99285; 99285-25; A9270-GY; G0378; J1815-GY; J1920; J2543; J3373; J3375; J7030; J7050; Q9967